=== PATIENT | female | born 1945 | race Caucasian/White ===

== ENCOUNTER 2021-09-28 07:01 | Day surgery (SDC) | payer MEDICARE, BC ==
[2021-09-27 16:25] LABS: CLARITY,URINE CLOUDY (Clear); COLOR,URINE YELLOW (Yellow); GLUCOSE, URINE NEGATIVE (Neg); KETONES,URINE NEGATIVE (Neg); LEUKOCYTE ESTERASE ,URINE MODERATE (Neg); NITRITES, URINE POSITIVE (Neg); OCCULT BLOOD,URINE MODERATE (Neg); PH,URINE 6.5 (4.8-8.0); PROTEIN,URINE 30 mg/dl (Neg); UROBILINOGEN,URINE 0.2 E.U/dL (0.2-1.0)
[2021-09-27 16:29] LABS: UA COLLECTION TYPE CLN CATCH MIDSTREAM
[2021-09-27 16:30] LABS: BASOPHILS % (AUTO) 0.9 % (0-1); EOSINOPHILS # (AUTO) 0.1 X10'3 (0-0.9); EOSINOPHILS % (AUTO) 1.4 % (0-6); LYMPHOCYTES # (AUTO) 1.5 X10'3 (1.1-4.8); LYMPHOCYTES % (AUTO) 30.1 % (21-51); MEAN CORPUSCULAR HEMOGLOBIN 33.1 PG (27.0-31.0); MEAN CORPUSCULAR HGB CONC 34.9 g/dL (33.0-36.5); MEAN CORPUSCULAR VOLUME 94.8 FL (78-98); MEAN PLATELET VOLUME 6.9 FL (7.4-10.4); MONOCYTES # (AUTO) 0.3 X10'3 (0-0.9); MONOCYTES % (AUTO) 6.6 % (2-12); NEUTROPHILS # (AUTO) 2.9 X10'3 (1.8-7.7); PRE OP HEMATOCRIT 35.1 % (35.0-45.0); PRE OP HEMOGLOBIN 12.3 g/dL (12.0-16.0); PRE OP PLATELET COUNT 206 X10'3 (140-440); RED CELL DISTRIBUTION WIDTH 13.3 % (11.5-14.5)
[2021-09-27 16:33] LABS: BACTERIA,URINE 4+ /HPF (Neg); WBC,URINE TNTC /HPF (0-4)
[2021-09-27 16:34] LABS: SQUAMOUS EPITHELIAL CELL,UR MODERATE /LPF (FEW)
[2021-09-27 16:44] LABS: ALBUMIN 3.8 G/DL (3.4-5.0); ALKALINE PHOSPHATASE 146 IU/L (46-116); BLOOD UREA NITROGEN 12 MG/DL (7-18); BUN/CREATININE RATIO 15.8 (6.6-38.0); CALCIUM 8.7 MG/DL (8.5-10.1); CHLORIDE 102 MMOL/L (99-107); CREATININE 0.76 MG/DL (0.40-0.90); PRE OP ALT 30 U/L (30-65); PRE OP ANION GAP 7 (8-16); PRE OP AST 23 U/L (10-37); PRE OP BILIRUB, TOTAL 0.4 MG/DL (0.0-1.0); PRE OP GLUCOSE 111 MG/DL (70-104); PRE OP POTASSIUM 3.7 MMOL/L (3.4-5.1); PRE OP SODIUM 139 MMOL/L (135-145); TOTAL PROTEIN 7.8 G/DL (6.4-8.2); eGFR 74 ML/MIN
[2021-09-28] VITALS (10 sets, daily range): BP systolic 103–138; BP diastolic 55–78
[~2021-09-28] VITALS: Ht 162.6 cm; Wt 60.6 kg
[~2021-09-28 07:01] MED LIST: ACET-812 PO; DIPH25TA62 PO; FOLATE; METH1TAB47 PO; TMG PO; VITAMIN D3 PO; [UNRECOGNIZED DRUG - OTHER] PO; clindamycin-Cleocin 900mg/D5W 50 ML IV ONE; famotidine 20mg tablet PO ONE; ringers solution, lacted 1,000 ML IV SCH
[2021-09-28] MEDS ORDERED: BUPIVAcaine 0.5% inj/PF 30 ML ONE (09:35)
[2021-09-28] MEDS ORDERED: sevoflurane 250ml liquid IH ONE (10:03)
[2021-09-28] MEDS ORDERED: fentaNYL/PF 50MCG/1 ML 2ML syringe ONE (10:07)
[2021-09-28] MEDS ORDERED: midazolam 1 mg/ML 2ml injection ONE (10:08)
[2021-09-28] MEDS ORDERED: rocuronium 10mg/ml inj IV ONE (10:08)
[2021-09-28] MEDS ORDERED: propofol inj 20 ML IV ONE (10:08)
[2021-09-28] MEDS ORDERED: BUPIVAcaine 0.5% inj/PF 30 ml vial IJ ONE (10:42)
[2021-09-28] MEDS ORDERED: proCHLORperazine 10 MG/2 ml inj IV PRN (10:50)
[2021-09-28] MEDS ORDERED: ondansetron/PF 4mg/2ml inj IV PRN (10:50)
[2021-09-28] MEDS ORDERED: meperidine/PF 25mg/ml syringe IV PRN ×3 (10:50)
[2021-09-28] MEDS ORDERED: morphine 2 MG/ML inj. syringe IV PRN (10:50)
[2021-09-28] MEDS ORDERED: ringers solution, lacted 1,000 ML IV SCH (10:50)
[2021-09-28] MEDS ORDERED: phenylephrine 10mg/ml inj. ONE (11:25)
[2021-09-28] MEDS ORDERED: dexamethasone sod phosphate 4mg/ml inj. ONE (11:25)
[2021-09-28] MEDS ORDERED: neostigmine methylsulfate 1 MG/ML 10ml vial ONE (11:28)
[2021-09-28] MEDS ORDERED: glycopyrrolate 0.2mg/ml inj ONE (11:28)
[2021-09-28] MEDS ORDERED: ondansetron/PF 4mg/2ml inj ONE (11:28)
--- NOTE | 2021-09-28 11:53 | NUR ---
Received from OR via [facility], accompanied by Anesthesiologist JEANNA and report given by Anesthesiolgist. VSS. PT. ARRIVED ON 10 L O2 VIA MASK. LR INFUSING AT 100 ML/HR IN L. HAND 20 G. IV. CDI. PT. REPORTS SOME DISCOMFORT IN ABDOMEN. SOME OOZING FROM R. SITE/STERISTRIPS NOTED. STERILE GAUZE APPLIED TO MONITOR DRAINAGE. Addendum: 09/28/21 at 1217 by Kristin Lynn RN Amended: Links added.
--- NOTE | 2021-09-28 12:20 | NUR ---
PT. REPORTS 05/07 PAIN/BURNING IN ABDOMEN. PRN DEMEROL 25 MG GIVEN. ICE CHIPS FOR DRY MOUTH. VSS. Addendum: 09/28/21 at 1228 by Kristin Lynn RN Amended: Links added.
[2021-09-28] MEDS: morphine 4 MG/ML inj SYRINge IV PRN ×2 (12:32→12:46)
--- NOTE | 2021-09-28 12:50 | NUR ---
PT. CONTINUES WITH 04/07 BURNING/ACHE IN ABDOMEN. PRN MORPHINE GIVEN ORDERED. PT. RESTING. ABLE TO TAKE ICE CHIPS. STATES SOME RELIEF. VSS. Addendum: 09/28/21 at 1251 by Kristin Lynn RN Amended: Links added.
[2021-09-28] MEDS ORDERED: HYDROcodone/acetaminophen 10/325mg tab PO ONE (13:15)
--- NOTE | 2021-09-28 13:53 | NUR ---
ALL DC CRITERIA MET. PT. CONVERSING, DRINKING FLUIDS AND EATING. NORCO GIVEN PRIOR TO DC. PT. STATES SHE HAS HAD MED BEFORE. PT. VSS. NO NV NOTED. IV DC CDI. PT. HAD DISCOMFORT WITH DRESSING NOTED. EDUCATION GIVEN ON USAGE OF LEGS AND SPLINTING TO HELP WITH ABD. MUSCLE PAIN. DC INSTRUCTIONS GIVEN TO PT AND SPOUSE. BOTH STATED UNDERSTANDING. PT. ABLE TO TRANSFER TO CAR. SPOUSE AWARE OF PT. FIRST PAIN MED AND THE NEED TO P/U PRESCRIPTION AT [facility] ON [address]. PT. EXPRESSED FEAR OF BM. STATES SHE HAS STOOL SOFTENER AT HOME. ENCOURAGED NOT TO STRAIN. EDUCATED ON POSSIBILITY OF CO2 PAIN IN SHOULDER. DC VIA WC TO PRIVATE VEHICLE. NO BLEEDING AT SITES. Addendum: 09/28/21 at 1410 by Kristin Lynn RN Amended: Links added.
== END 2021-09-28 13:53 | disposition home or self-care (01) ==
LOC: PAS 07:01
PROVIDERS: ATTEND Surgery
DX: K40.90 Unilateral inguinal hernia, without obstruction or gangrene, not specified as recurrent (principal); G47.30 Sleep apnea, unspecified; M19.09 Primary osteoarthritis, other specified site; Z87.440 Personal history of urinary (tract) infections; Z79.899 Other long term (current) drug therapy; Z88.0 Allergy status to penicillin; Z91.09 Other allergy status, other than to drugs and biological substances; Z88.1 Allergy status to other antibiotic agents; Z88.2 Allergy status to sulfonamides; Z20.822 Contact with and (suspected) exposure to COVID-19
CPT/HCPCS: 36415; 49650; 80053; 81001; 82948; 85025; 87077; 87088; 87186; 87635; 93005; C1758; C1781; C9803; J1100; J2175; J2250; J2270; J2370; J2405; J2704; J2710; J3010; J3490; J7030; J7120; S0020; Z7506; Z7508; Z7512; A4215; A4618